=== PATIENT | female | born 1975 | race Caucasian/White ===

== ENCOUNTER 2021-11-11 21:03 | Emergency (ER) | payer OTHER ==
[~2021-11-11] VITALS: Ht 167.6 cm; Wt 56.7 kg
--- NOTE | 2021-11-11 22:10 | NUR ---
BIBS. DIFFUSED ABD APIN X SATURDAY 08/26 L FLANK PAIN W/ DYSURIA. PATIENT IS AAOX4. PLACED COMFORTABLY IN BED. VITALS CHECKED.
[2021-11-11] MEDS ORDERED: IV NS 0.9% 500 ML BAG IV ONE (22:30)
[2021-11-11] MEDS ORDERED: KETOROLAC TROMETHAMINE INJ 30 MG/ML VIAL IV ONE (22:30)
--- NOTE | 2021-11-11 22:30 | NUR ---
URINE SPECIMEN SENT TO LAB
[2021-11-11] MEDS ORDERED: KETOROLAC TROMETHAMINE 15 MG/ML VIAL ONE (22:33)
[2021-11-11 22:37] LABS: BASOPHILS # (AUTO) 0.1 K/uL (0.0-0.2); BASOPHILS % (AUTO) 0.8 % (0.0-2.0); EOSINOPHILS % (AUTO) 2.7 % (0.0-6.0); HEMATOCRIT 38 % (33-45); HEMOGLOBIN 12.7 g/dL (11.5-14.8); LYMPHOCYTES # (AUTO) 1.7 K/uL (0.8-4.8); MEAN CORPUSCULAR HGB CONC 33 g/dl (31.0-36.0); MEAN CORPUSCULAR VOLUME 89 fL (82-100); MONOCYTES # (AUTO) 0.9 K/uL (0.1-1.30); MONOCYTES % (AUTO) 6.3 % (2.0-12.0); NEUTROPHILS # (AUTO) 11.1 K/uL (1.8-8.9); NEUTROPHILS % (AUTO) 78.2 % (43.0-81.0); PLATELET COUNT (AUTO) 271 K/uL (150-450); WHITE BLOOD COUNT (AUTO) 14.2 K/uL (4.3-11.0)
--- NOTE | 2021-11-11 22:39 | NUR ---
BIBS. TO ER BED 12. AAOX4. NOT IN RESP DISTRESS. AMBULATORY. CAME IN FOR DIFFSUED ABDOMINAL PAIN X FRIDAY. PER REPORTS THAT SHE HAS BEEN EATING SEAFOOD. ALSO, FLANK PAIN WITH ASSOCIATED DYSURIA. PT IS AFEBRILE. MD WAS AT BEDSIDE. ORDERS RECEIVED
[2021-11-11 22:56] LABS: CREATININE 0.7 mg/dL (0.6-1.3); POTASSIUM 3.6 mmol/L (3.5-5.1)
[2021-11-11 23:08] LABS: BILIRUBIN,URINE NEGATIVE (NEGATIVE); COLOR,URINE YELLOW (YELLOW); LEUKOCYTE ESTERASE ,URINE LARGE (NEGATIVE); NITRITE, URINE NEGATIVE (NEGATIVE); PROTEIN,URINE NEGATIVE (NEGATIVE); UGLUCOSE NEGATIVE (NEGATIVE); UROBILINOGEN,URINE 0.2 EU/dL (0.2)
[2021-11-11 23:26] LABS: BACTERIA,URINE MANY /HPF (None Seen); RBC,URINE TOO NUMEROUS TO COUN /HPF (0-2); SQUAMOUS EPITHELIAL CELL,UR FEW /HPF (None Seen); WBC,URINE TOO NUMEROUS TO COUN /HPF (0-3)
--- NOTE | 2021-11-11 23:30 | NUR ---
PT TRANSPORTED TO CT VIA [facility]
[2021-11-12] MEDS ORDERED: CEPH500C2 PO (00:52)
[2021-11-12] MEDS ORDERED: NABU-139 PO (00:52)
--- NOTE | 2021-11-12 01:18 | NUR ---
Patient discharged to home in stable condition. Written and verbal after care instructions given. Patient verbalizes understanding of instruction.IV removed. Catheter intact and site benign. Pressure and 4x4 applied to site. No bleeding noted. Pt ambulatory with a steady gait
[2021-11-12 01:19] VITALS: BP 112/70
== END 2021-11-12 01:20 | disposition home or self-care (01) ==
LOC: ER 21:03
DX: N12 Tubulo-interstitial nephritis, not specified as acute or chronic (principal)
CPT/HCPCS: 99284; 74176; 96374; 96361; 85025; 80048; 87077; 87086; 84703; 87186; 81001; 36415; J7040; J1885